=== PATIENT | female | born 1985 ===

== ENCOUNTER → 2017-04-25 | Outpatient (REF) | LOC: WSOH 08:56 → WSPT 10:30 | DX: Z02.89 Encounter for other administrative examinations (principal) ==

== ENCOUNTER → 2017-04-27 | Outpatient (REF) | LOC: WSOH 15:32 | DX: Z02.89 Encounter for other administrative examinations (principal) ==

== ENCOUNTER → 2017-05-17 | Outpatient (REF) | LOC: WSOH 15:44 | DX: Z02.89 Encounter for other administrative examinations (principal) ==